=== PATIENT | female | born 1965 | race Two or more races ===

== ENCOUNTER → 2016-08-11 | Outpatient (CLI) | payer OTHER | END | disposition home or self-care (01) | LOC: CFH 16:05 | PROVIDERS: ATTEND Family Medicine | DX: Z12.31 Encounter for screening mammogram for malignant neoplasm of breast (principal) | CPT/HCPCS: G0202 ==

== ENCOUNTER → 2016-08-21 | Outpatient (CLI) | payer OTHER | END | disposition home or self-care (01) | LOC: CFH 14:09 | PROVIDERS: ATTEND Family Medicine | DX: R92.2 Inconclusive mammogram (principal) | CPT/HCPCS: 76641; G0206 ==

== ENCOUNTER → 2017-07-14 | Outpatient (CLI) | payer OTHER ==
[~2017-07-14] MED LIST: CYCL5TAB PO; GABA300C10 PO; MELO7.5T31 PO; STADOL PO; TRAM50TA2 PO
[2017-07-14 10:23] LABS: BASOPHILS # (AUTO) 0.02 x10^3/uL (0-0.1); BASOPHILS % (AUTO) 1 % (0-1); EOSINOPHILS # (AUTO) 0.12 x10^3/uL (0-0.4); EOSINOPHILS % (AUTO) 2 % (1-7); LYMPHOCYTES # (AUTO) 1.78 x10^3/uL (1-3.4); LYMPHOCYTES % (AUTO) 35 % (22-44); MD NO; MEAN CORPUSCULAR HGB CONC 34.3 g/dL (32.4-35.8); MEAN CORPUSCULAR VOLUME 93.2 fL (80-100); MEAN PLATELET VOLUME 7.4 fL (7.4-10.4); MONOCYTES # (AUTO) 0.47 x10^3/uL (0.2-0.8); MONOCYTES % (AUTO) 9 % (2-9); NEUTROPHILS # (AUTO) 2.73 x10^3/uL (1.8-6.8); NEUTROPHILS % (AUTO) 53 % (42-75); PLATELET COUNT 335 x10^3/uL (130-400); RED BLOOD COUNT 4.32 x10^6/uL (3.82-5.3)
[2017-07-14 10:33] LABS: INTERNATIONAL NORMALIZED RATIO 0.95 (0.93-1.1); PROTHROMBIN TIME 9.9 Seconds (9.6-11.5)
[2017-07-14 10:35] LABS: ANION GAP 6 mmol/L (5-15); CALCIUM 8.7 mg/dL (8.5-10.1); CHLORIDE 105 mmol/L (98-107); CREATININE 0.75 mg/dL (0.55-1.02)
== END | disposition home or self-care (01) ==
LOC: STAR 09:16
PROVIDERS: ATTEND Neurological Surgery
DX: Z01.818 Encounter for other preprocedural examination (principal); M48.02 Spinal stenosis, cervical region
CPT/HCPCS: 36415; 71046; 80048; 84703; 85025; 85610; 85730; 93005

== ENCOUNTER 2017-07-20 09:18 | Inpatient (IN) | payer OTHER ==
[~2017-07-20] VITALS: Ht 142.2 cm; Wt 74.0 kg
[2017-07-20] MEDS ORDERED: LACTATED RINGERS 1,000 ML IV SCH (13:42)
[2017-07-20] MEDS ORDERED: ONDANSETRON ODT 8 MG PO ONE (14:00)
[2017-07-20] MEDS ORDERED: DIAZEPAM 5 MG TABLET PO ONE (14:00)
[2017-07-20] MEDS ORDERED: GABAPENTIN 300 MG CAPSULE PO ONE (14:00)
[2017-07-20] MEDS ORDERED: HYDROcodone/APAP 10/325 MG TABLET PO ONE (14:00)
[2017-07-20] MEDS ORDERED: ACETAMINOPHEN 500 MG TABLET PO ONE (14:00)
[2017-07-20] MEDS ORDERED: OxyconTIN ER 10 MG TAB.ER PO ONE (14:00)
[2017-07-20] MEDS ORDERED: HYDR-3245 PO (14:04)
[2017-07-20] MEDS ORDERED: FENTANYL PF 250 MCG/5ML ONE (14:41)
[2017-07-20] MEDS ORDERED: MIDAZOLAM 1 MG/ML, 2ML ONE (14:41)
[2017-07-20] MEDS ORDERED: ONDANSETRON 2MG/ML, 2ML ONE (14:42)
[2017-07-20] MEDS ORDERED: CEFAZOLIN 1,000 MG ONE (14:42)
[2017-07-20] MEDS ORDERED: PROPOFOL 10 MG/ML, 20ML ONE (14:42)
[2017-07-20] MEDS ORDERED: DEXAMETHASONE 4 MG/ML, 1ML ONE (14:42)
[2017-07-20] MEDS ORDERED: SUCCINYLCHOLINE 20 MG/ML, 10ML ONE (14:43)
[2017-07-20] MEDS ORDERED: LIDOCAINE GEL 2%, 5ML ONE (14:43)
[2017-07-20] MEDS ORDERED: BACITRACIN 50,000 UNIT ONE (15:14)
[2017-07-20] MEDS ORDERED: BUPIVACAINE/PF 0.5% ONE (15:14)
[2017-07-20] MEDS ORDERED: THROMBIN 20,000 UNIT VIAL TP ONE ×2 (15:14→16:13)
[2017-07-20] MEDS ORDERED: EPINEPHRINE 1 MG/ML, 1ML ONE (15:14)
[2017-07-20] MEDS ORDERED: PROPOFOL 10 MG/ML, 50ML ONE (15:21)
[2017-07-20] MEDS ORDERED: hydrALAzine 20 MG/ML, 1ML ONE ×2 (15:21→16:59)
[2017-07-20] MEDS ORDERED: DIAZEPAM 5 MG/ML, 2ML IVPush PRN (16:30)
[2017-07-20] MEDS ORDERED: hydrALAzine 20 MG/ML, 1ML IV PRN (16:30)
[2017-07-20] MEDS ORDERED: DIPHENHYDRAMINE 50 MG/ML, 1ML IVPush PRN ×2 (16:30)
[2017-07-20] MEDS ORDERED: MEPERIDINE/PF 25MG/0.5ML IVPush PRN (16:30)
[2017-07-20] MEDS ORDERED: SCOPOLAMINE PATCH, 1.5MG PATCH.TD72 TD PRN (16:30)
[2017-07-20] MEDS ORDERED: MIDAZOLAM 1 MG/ML, 2ML IV PRN (16:30)
[2017-07-20] MEDS ORDERED: LORazepam 2 MG/ML, 1ML IVPush PRN (16:30)
[2017-07-20] MEDS ORDERED: HYDROcodone/APAP 10/325 MG TABLET PO PRN (16:30)
[2017-07-20] MEDS ORDERED: MORPHINE SULFATE 4 MG/ML, 1ML IVPush PRN (16:30)
[2017-07-20] MEDS ORDERED: ONDANSETRON ODT 8 MG PO PRN (16:30)
[2017-07-20] MEDS ORDERED: PROMETHAZINE 25 MG/ML, 1ML IV PRN (16:30)
[2017-07-20] MEDS ORDERED: EPHEDRINE 50 MG/ML, 1ML IM PRN (16:30)
[2017-07-20] MEDS ORDERED: ALBUTEROL/IPRATROPIUM 2.5MG/0.5MG, 3 ML NPPB PRN (16:30)
[2017-07-20] MEDS ORDERED: LABETALOL 5MG/ML, 20ML IV PRN (16:30)
[2017-07-20] MEDS ORDERED: PROMETHAZINE 25 MG/ML, 1ML IM PRN ×2 (16:30→20:00)
[2017-07-20] MEDS ORDERED: LABETALOL 5MG/ML, 20ML ONE (17:20)
[2017-07-20] MEDS ORDERED: MEPERIDINE/PF 25MG/0.5ML ONE (17:32)
[2017-07-20] MEDS ORDERED: FENTANYL PF 100 MCG/2ML ONE (17:32)
[2017-07-20] MEDS: FENTANYL PF 100 MCG/2ML IV PRN ×2 (17:39→18:17)
[2017-07-20] MEDS ORDERED: BISACODYL 10 MG SUPP PR PRN (20:00)
[2017-07-20] MEDS ORDERED: ONDANSETRON 2MG/ML, 2ML IV PRN (20:00)
[2017-07-20] MEDS ORDERED: CEFAZOLIN PMX 1GM/50ML 50 ML IVPB SCH (20:00)
[2017-07-20] MEDS ORDERED: METHOCARBAMOL 1,000 MG in DEXTROSE 5% 100 ML IV ONE (20:00)
[2017-07-20] MEDS ORDERED: CEFAZOLIN 1,000 MG in SODIUM CHLORIDE 0.9% 50 ML IVPB SCH (20:00)
[2017-07-20] MEDS ORDERED: HYDROmorphone 2 MG/ML, 1ML IM PRN (20:00)
[2017-07-20] MEDS: D5%-0.9% NACL+KCL 20MEQ 1,000 ML IV SCH (21:42)
[2017-07-20] MEDS ORDERED: LORazepam 1MG TABLET PO PRN (22:00)
[2017-07-20] MEDS ORDERED: HYDROmorphone 2 MG/ML, 1ML IV PRN ×2 (22:00)
[2017-07-20] MEDS: GABAPENTIN 300 MG CAPSULE PO SCH (22:01)
[2017-07-21 00:02] VITALS: BP 107/49
[2017-07-21 03:15] VITALS: BP 98/48
[2017-07-21] MEDS: METHOCARBAMOL 750 MG in DEXTROSE 5% 100 ML IV SCH ×3 (04:11→21:41)
[2017-07-21] MEDS: HYDROcodone/APAP 10/325 MG TABLET PO PRN ×2 (04:11→10:11)
[2017-07-21 05:24] LABS: BASOPHILS # (AUTO) 0.02 x10^3/uL (0-0.1); BASOPHILS % (AUTO) 0 % (0-1); EOSINOPHILS # (AUTO) 0.01 x10^3/uL (0-0.4); EOSINOPHILS % (AUTO) 0 % (1-7); LYMPHOCYTES # (AUTO) 0.81 x10^3/uL (1-3.4); LYMPHOCYTES % (AUTO) 8 % (22-44); MD NO; MEAN CORPUSCULAR HEMOGLOBIN 32.6 pg (27.0-34.8); MEAN CORPUSCULAR HGB CONC 34.6 g/dL (32.4-35.8); MEAN CORPUSCULAR VOLUME 94.2 fL (80-100); MEAN PLATELET VOLUME 7.6 fL (7.4-10.4); MONOCYTES # (AUTO) 0.21 x10^3/uL (0.2-0.8); MONOCYTES % (AUTO) 2 % (2-9); NEUTROPHILS # (AUTO) 8.79 x10^3/uL (1.8-6.8); NEUTROPHILS % (AUTO) 89 % (42-75); PLATELET COUNT 305 x10^3/uL (130-400); RED BLOOD COUNT 3.78 x10^6/uL (3.82-5.3); RED CELL DISTRIBUTION WIDTH 13.3 % (9.6-15.2)
[2017-07-21] MEDS: ENOXAPARIN 40 MG/0.4 ML SQ SCH (06:14)
[2017-07-21 07:57] VITALS: BP 101/59
[2017-07-21] MEDS: MELOXICAM 15 MG TABLET PO SCH (08:14)
[2017-07-21] MEDS: D5%-0.9% NACL+KCL 20MEQ 1,000 ML IV SCH ×2 (08:14→17:56)
[2017-07-21] MEDS: GABAPENTIN 300 MG CAPSULE PO SCH ×3 (08:14→21:41)
[2017-07-21] MEDS: SENNA/DOCUSATE TABLET PO SCH (08:14)
[2017-07-21] MEDS ORDERED: CEFAZOLIN 1,000 MG in SODIUM CHLORIDE 0.9% 50 ML IVPB ONE (10:00)
[2017-07-21 14:55] VITALS: BP 122/72
[2017-07-21 18:38] VITALS: BP 113/56
[2017-07-22 00:52] VITALS: BP 119/55
[2017-07-22 05:21] LABS: BASOPHILS # (AUTO) 0.02 x10^3/uL (0-0.1); BASOPHILS % (AUTO) 0 % (0-1); EOSINOPHILS # (AUTO) 0.02 x10^3/uL (0-0.4); EOSINOPHILS % (AUTO) 0 % (1-7); LYMPHOCYTES # (AUTO) 2.68 x10^3/uL (1-3.4); LYMPHOCYTES % (AUTO) 25 % (22-44); MD NO; MEAN CORPUSCULAR HEMOGLOBIN 32.1 pg (27.0-34.8); MEAN CORPUSCULAR HGB CONC 33.8 g/dL (32.4-35.8); MEAN CORPUSCULAR VOLUME 94.8 fL (80-100); MEAN PLATELET VOLUME 7.5 fL (7.4-10.4); MONOCYTES # (AUTO) 0.76 x10^3/uL (0.2-0.8); MONOCYTES % (AUTO) 7 % (2-9); NEUTROPHILS # (AUTO) 7.07 x10^3/uL (1.8-6.8); NEUTROPHILS % (AUTO) 67 % (42-75); PLATELET COUNT 271 x10^3/uL (130-400); RED BLOOD COUNT 3.57 x10^6/uL (3.82-5.3); RED CELL DISTRIBUTION WIDTH 13.4 % (9.6-15.2)
[2017-07-22 05:39] LABS: CREATININE 0.75 mg/dL (0.55-1.02)
[2017-07-22] MEDS: METHOCARBAMOL 750 MG in DEXTROSE 5% 100 ML IV SCH ×3 (05:55→21:21)
[2017-07-22] MEDS: ENOXAPARIN 40 MG/0.4 ML SQ SCH (06:00)
[2017-07-22 06:44] VITALS: BP 130/85
[2017-07-22] MEDS: HYDROcodone/APAP 10/325 MG TABLET PO PRN (06:45)
[2017-07-22] MEDS: SENNA/DOCUSATE TABLET PO SCH (09:03)
[2017-07-22] MEDS: GABAPENTIN 300 MG CAPSULE PO SCH ×3 (09:03→21:20)
[2017-07-22] MEDS: MELOXICAM 15 MG TABLET PO SCH (09:03)
[2017-07-22 14:02] VITALS: BP 100/67
[2017-07-22] MEDS: MAGNESIUM HYDROXIDE 8%, 30ML UDC PO PRN (16:44)
[2017-07-22 18:53] VITALS: BP 120/65
[2017-07-23 00:43] VITALS: BP 109/50
[2017-07-23 04:42] LABS: BASOPHILS # (AUTO) 0.02 x10^3/uL (0-0.1); BASOPHILS % (AUTO) 0 % (0-1); EOSINOPHILS # (AUTO) 0.13 x10^3/uL (0-0.4); EOSINOPHILS % (AUTO) 2 % (1-7); LYMPHOCYTES # (AUTO) 2.14 x10^3/uL (1-3.4); LYMPHOCYTES % (AUTO) 23 % (22-44); MD NO; MEAN CORPUSCULAR HEMOGLOBIN 32.1 pg (27.0-34.8); MEAN CORPUSCULAR HGB CONC 34.1 g/dL (32.4-35.8); MEAN CORPUSCULAR VOLUME 94.2 fL (80-100); MEAN PLATELET VOLUME 7.5 fL (7.4-10.4); MONOCYTES # (AUTO) 0.72 x10^3/uL (0.2-0.8); MONOCYTES % (AUTO) 8 % (2-9); NEUTROPHILS # (AUTO) 6.17 x10^3/uL (1.8-6.8); NEUTROPHILS % (AUTO) 67 % (42-75); PLATELET COUNT 290 x10^3/uL (130-400); RED CELL DISTRIBUTION WIDTH 13.6 % (9.6-15.2)
[2017-07-23] MEDS: ENOXAPARIN 40 MG/0.4 ML SQ SCH (06:00)
[2017-07-23] MEDS ORDERED: MEPERIDINE/PF 100 MG/ML IM STA (06:08)
[2017-07-23] MEDS ORDERED: KETOROLAC 30 MG/1 ML IVPush STA (06:08)
[2017-07-23] MEDS ORDERED: hydrOXYzine 50 MG/ML IM STA (06:08)
[2017-07-23] MEDS ORDERED: hydrOXYzine 25 MG/ML IM STA (06:46)
[2017-07-23] MEDS: METHOCARBAMOL 750 MG TABLET PO SCH ×2 (06:48→14:00)
[2017-07-23] MEDS: MAGNESIUM HYDROXIDE 8%, 30ML UDC PO PRN (07:57)
[2017-07-23] MEDS: GABAPENTIN 300 MG CAPSULE PO SCH ×2 (07:57→16:11)
[2017-07-23] MEDS: MELOXICAM 15 MG TABLET PO SCH (07:57)
[2017-07-23] MEDS: SENNA/DOCUSATE TABLET PO SCH (07:57)
[2017-07-23] MEDS ORDERED: MEPERIDINE/PF 50 MG/ML IM ONE (08:00)
[2017-07-23] MEDS ORDERED: hydrOXYzine 50 MG/ML IM ONE (08:00)
[2017-07-23] MEDS ORDERED: KETOROLAC 30 MG/1 ML IV ONE (08:00)
[2017-07-23 08:09] VITALS: BP 118/53
[2017-07-23] MEDS ORDERED: CYCL-259 PO (11:45)
[2017-07-23] MEDS: HYDROcodone/APAP 10/325 MG TABLET PO PRN (13:10)
[2017-07-23 14:30] VITALS: BP 113/58
[2017-07-23 18:35] VITALS: BP 115/52
== END 2017-07-23 18:35 | disposition home or self-care (01) | DRG 460 ==
LOC: ORIP 13:24 → 4NOR 19:11
PROVIDERS: ADMIT Neurological Surgery; ATTEND Neurological Surgery
PROC: 0SB20ZZ Excision of Lumbar Vertebral Disc, Open Approach (ICD-10-PCS; 2017-07-20)
PROC: 4A11X4G Monitoring of Peripheral Nervous Electrical Activity, Intraoperative, External Approach (ICD-10-PCS; 2017-07-20)
PROC: 0SG00AJ Fusion of Lumbar Vertebral Joint with Interbody Fusion Device, Posterior Approach, Anterior Column, Open Approach (ICD-10-PCS; principal; 2017-07-20 15:00)
DX: M48.061 Spinal stenosis, lumbar region without neurogenic claudication (principal); M19.90 Unspecified osteoarthritis, unspecified site; M51.16 Intervertebral disc disorders with radiculopathy, lumbar region; Z88.6 Allergy status to analgesic agent
CPT/HCPCS: 36415; 72100; 82565; 85025; C1713; C1776; J0171; J0690; J1100; J1650; J1885; J2175; J2250; J2270; J2405; J2704; J3010; J3490; Q0162; C1763; J0330; J0360; J2800; J3410; J3480; J7120